=== PATIENT | male | born 1970 | race Caucasian/White ===

== ENCOUNTER → 2017-02-05 | Outpatient (CLI) | payer BC ==
--- NOTE | 2017-02-06 09:07 | MM ---
Reason for exam: clinical finding. Physical Findings: Nurse did not find any significant physical abnormalities on exam. [facility] Mammo w CAD HALINA Bilateral CC and MLO view(s) were taken. Bilateral retroareolar flamed shaped focal asymmetry suggestive of gynecomastia. These results were verbally communicated with the patient and result sheet given to the patient on 02/05/17. ASSESSMENT: Incomplete: need additional imaging evaluation, BI-RAD 0 RECOMMENDATION: Ultrasound of the right breast. (area of pain)
--- NOTE | 2017-02-06 09:09 | USB ---
Reason for exam: additional evaluation requested from abnormal screening. US Breast RT Right breast ultrasound demonstrates a 2.2 x 1.1 x 1.1cm solid, hypoechoic lesion at the posterior nipple. Warrants biopsy. These results were verbally communicated with the patient and result sheet given to the patient on 02/05/17. ASSESSMENT: Suspicious, BI-RAD 4 RECOMMENDATION: Ultrasound core biopsy of the right breast. Called Dr. Parker with mammographic findings and has scheduled an appointment for the patient for 03/07/17 at 4:[address] Thomason. Right ultrasound core biopsy scheduled for 02/12/17 at 12:20. PRELIMINARY REPORT CALLED AND FAXED TO DR. THOMASON ON 02/06/17 /TP.
== END | disposition home or self-care (01) ==
LOC: RADMAMWWP 14:31
PROVIDERS: ATTEND Family Medicine
DX: R92.8 Other abnormal and inconclusive findings on diagnostic imaging of breast (principal); N64.59 Other signs and symptoms in breast
CPT/HCPCS: 76641; G0204

== ENCOUNTER → 2017-02-12 | Day surgery (SDC) | payer BC ==
[2017-02-12 12:09] VITALS: RESP 16; TEMP 97.9; BMI 34.2
[2017-02-12 13:29] VITALS: BP 133/80; PULSE 76
--- NOTE | 2017-02-12 14:13 | USB ---
EXAMINATION TYPE: US biopsy breast VAD RT DATE OF EXAM: 02/12/2017 CLINICAL HISTORY: 46-year-old male with right breast tenderness referred for biopsy. TECHNIQUE: Ultrasound guided core biopsy of the right subareolar breast. COMPARISON: 02/05/2017 FINDINGS: The procedure of ultrasound guided core biopsy was explained to the patient. Benefits, alternatives, and risks were discussed. An informed consent was then obtained. The patient was placed in supine positioning for imaging and for the procedure. The overlying skin was prepped and draped in usual sterile fashion. Lidocaine was used as anesthetic into the skin followed by lidocaine with epinephrine into the subcutaneous tissue up to area of concern in the right breast. Under ultrasound guidance, a 13-gauge vacuum-assisted mammotome Elite biopsy gun device was used to obtain 6 core samples. No biopsy clip was placed given the subareolar focality of the abnormality. The patient tolerated the procedure well without any immediate complication. The patient was kept in the radiology department for short stay after the procedure and then discharged home in stable condition. IMPRESSION: Successful, uncomplicated ultrasound guided core biopsy of the subareolar right breast abnormality. Gynecomastia is suspected. Full pathology results to follow. Pathology Results: Benign BREAST, RIGHT, SITE A POST NIPPLE, CORE BIOPSY: GYNECOMASTIA. Recommendation Manage clinically. LUCASD
== END ==
LOC: RADUSWWP 11:48
PROVIDERS: ATTEND Surgery
DX: N62 Hypertrophy of breast (principal); R92.8 Other abnormal and inconclusive findings on diagnostic imaging of breast
CPT/HCPCS: 88305; 19083; J2001